=== PATIENT | male | born 1980 | race Caucasian/White ===

== ENCOUNTER 2016-07-29 22:44 | Emergency (ER) | payer OTHER ==
[~2016-07-29] VITALS: Ht 165.1 cm; Wt 58.0 kg
[2016-07-29 22:46] VITALS: BP 128/88; PULSE 90; RESP 18; TEMP 98.2; O2SAT 98
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
[2016-07-29] MEDS ORDERED: IOHEXOL 350 MG/ML 10 ML VIAL (for RAD DIAG) IV ONE (23:34)
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
[2016-07-30] MEDS ORDERED: HYDR-3533 PO (00:41)
--- NOTE | 2016-07-30 10:05 | EKG ---
Date Performed: 07/29/2016 Time Performed: 23:01:47 PTAGE: 35 years EKG: Sinus rhythm NORMAL ECG NO PREVIOUS TRACING DOCTOR: Juarez Kelly Interpretating Date/Time 07/30/2016 10:03:03
== END 2016-07-30 01:50 | disposition home or self-care (01) ==
LOC: NEPE 22:44
DX: S29.9XXA Unspecified injury of thorax, initial encounter (principal); R91.1 Solitary pulmonary nodule; V43.52XA Car driver injured in collision with other type car in traffic accident, initial encounter
CPT/HCPCS: 71275; 74174; 93005; 99283; Q9967